=== PATIENT | male | born 1985 | race Caucasian/White ===

== ENCOUNTER 2017-11-24 14:28 | Outpatient (CLI) | payer OTHER | END 2017-11-24 14:29 | disposition home or self-care (01) | LOC: CTENTCT 14:28 | PROVIDERS: ATTEND Otolaryngology Plastic Surgery within the Head & Neck | DX: J34.2 Deviated nasal septum (principal) | CPT/HCPCS: 70486 ==

== ENCOUNTER 2017-12-24 06:58 | Day surgery (SDC) | payer OTHER ==
[2017-12-23 14:21] VITALS: BMI 31.1
[2017-12-24] MEDS ORDERED: Oxymetazoline HCl 0.05% ( 15 ML ) ONE ×2 (09:57→11:00)
[2017-12-24] MEDS ORDERED: Scopolamine 1.5 mg/72 hour Patch ONE (10:17)
[2017-12-24] MEDS ORDERED: Midazolam HCl 2 mg/2 ml Vial ONE ×2 (10:17→10:57)
[2017-12-24] MEDS ORDERED: Morphine 4 MG/ML VIAL ONE (10:57)
[2017-12-24] MEDS ORDERED: Fentanyl 250 MCG/5 ML VIAL ONE (10:57)
[2017-12-24] MEDS ORDERED: Lidocaine 1% w/Epinephrine 1:200K 30 ML VIAL ONE (11:00)
[2017-12-24] MEDS ORDERED: Bacitracin Zinc Ointment 30 gm TUBE ONE (11:00)
[2017-12-24] MEDS ORDERED: methylPREDNISolone Acetate 40 mg/ml Vial ONE (11:07)
[2017-12-24] MEDS ORDERED: Ferric Subsulfate 8 ML BOT ONE (12:05)
[2017-12-24] MEDS ORDERED: Morphine 2 MG/ML SYRINGE ONE (12:53)
[2017-12-24] MEDS ORDERED: Hydrocodone-Acetamin 15 ML UDCUP ONE (13:47)
--- NOTE | 2017-12-24 14:13 | OP ---
PREOPERATIVE DIAGNOSES: 1. Chronic rhinosinusitis. 2. Nasal septal deviation. 3. Bilateral inferior turbinate hypertrophy. 4. Chronic adenotonsillitis. 5. Adenotonsillar hypertrophy. 6. Nasal obstruction. POSTOPERATIVE DIAGNOSES: 1. Chronic rhinosinusitis. 2. Nasal septal deviation. 3. Bilateral inferior turbinate hypertrophy. 4. Chronic adenotonsillitis. 5. Adenotonsillar hypertrophy. 6. Nasal obstruction. PROCEDURES: 1. Bilateral endoscopic sinus surgery, maxillary antrostomies. 2. Bilateral endoscopic sinus surgery, frontal sinusotomies. 3. Bilateral endoscopic sinus surgery, sphenoidotomies. 4. Nasal septoplasty. 5. Bilateral inferior turbinate submucosal resection. 6. Tonsillectomy and adenoidectomy. SURGEON: Chin Xiao M.D. ESTIMATED BLOOD LOSS: 20 mL COMPLICATIONS: None. ANESTHESIA: GETA. PROCEDURE: Tonsillectomy and adenoidectomy. PROCEDURE IN DETAIL: After consent was obtained, the patient was identified, brought to the operatin g room, and placed on the operating table in the supine position. General endotracheal anesthesia and intravenous access was obtained and we proceeded with positioning the patient for oropharyngeal surg elver. Oropharyngeal exposure was obtained with a Marika-Cleveland mouth gag after a head drape was placed a nd secured with a towel clip. The Marika-Cleveland mouth gag was then suspended from the Amin tray and pal atal elevation was achieved with a red rubber catheter. The right tonsil was addressed first. We use d a curved Allis to grasp the tonsil and retract it medially as an anterior pillar incision was made. The retrotonsillar fascial plane was then established and blunt dissection was performed with the myers ction cautery. Blood vessels were anticipated, identified, and cauterized as they were encountered. U ltimately, dissection was carried to the posterior tonsillar pillar mucosa which was incised hemostat ically, as well as the base of tongue connection. The tonsil was then passed off as a specimen and bl eeding points within the tonsillar bed were cauterized under direct visualization. We subsequently tu rned our attention to the contralateral side, where using a similar technique, a near identical proce dure was performed. Again, the tonsil was grasped and retracted medially with a curved Allis. The ret rotonsillar fascial plane was established and while the anterior pillar was retracted medially, the h emostatic blunt dissection of the tonsil with a suction cautery was performed with blood vessels anti cipated, identified, and cauterized as they were encountered. Again, dissection continued to the base of tongue and posterior tonsillar pillar mucosa which was incised in a hemostatic fashion. The tonsi llar beds were then carefully inspected and bleeding points were identified and cauterized with a suc tion cautery. After this portion of the procedure, hemostasis was completely obtained. Under direct m irror visualization, we visualized the adenoid pad. Under direct mirror visualization, we removed the bulk of the adenoid tissue with the adenoid curette. We then packed the nasopharynx for an appropria te period of time with Te-Synephrine saturated tonsillar sponges. After a period of observation, we removed the pack. Under indirect mirror visualization, we obtained hemostasis and vaporization of res idual adenoid tissue with electrocautery. The patient's oral cavity was copiously irrigated with iced saline and subsequently suctioned. After completion of the procedure, the nasal cavity and oropharyn x were irrigated and suctioned as were the gastric contents. The patient was then awakened and transf erred to the recovery room where the patient remained in stable condition prior to discharge to [facility]. PROCEDURE: Nasal septoplasty and bilateral inferior turbinates. PROCEDURE IN DETAIL: Patient was taken to the operating room and placed supine on the table. General endotracheal anesthesia was obtained by the Anesthesia staff. Tube was secured in the left lower lip . Patient was then placed in the beach chair position, and Afrin pledgets were placed in the nasal ca vity. Injections of 1% lidocaine with 1:100,000 epinephrine were made into the nasal septum as well as the inferior turbinates. Patient was then prepped and draped in standard surgical fashion for nasa l surgery. Following this, the Afrin pledgets were removed. A Segun incision was made on the left n samantha septum. Submucoperichondrial dissection was performed. The deviated portions of the septum incl uded portions of the cartilage and the bony septum. These isolated areas were removed using three cut ting rongeurs. There was noted to be a large dorsal and caudal strut, left intact for support of the nose. The mucoperichondrial flaps were then reapproximated using a 4-0 gut stitch. Any straight piece s of cartilage were crushed prior to this and placed between the mucoperichondrial flaps. Following t his, the inferior turbinates were then punctured with a submucosal coblation wand, and submucosal cob lations were performed of multiple areas of the inferior portion of the anterior inferior turbinate. Please note that the inferior turbinates were submucosally resected using the submucosal microdebride r and the anterior inferior portions of the inferior turbinates bilaterally. Following this, inferio r turbinates were then laterally outfractured with a [place] elevator. Following this, the 0 degree en doscope was advanced into the middle meatus. The middle turbinate was gently medialized using a Free r elevator. Following this, the uncinate process was anteriorly fractured using the ball-ended probe and then removed using the straight microdebrider and the upbiting Blakesley forceps. Following thi s, the natural maxillary sinus ostia was identified and was widened using the 0 and curved microdebri ders bilaterally. Following this, the ethmoidal bulla was identified and was punctured on its medial and inferior aspect and was removed using the microdebrider bilaterally. Following this, the grand lamella was identified and was punctured into the posterior ethmoidal cells, working from posterior t o anterior, the ethmoidal cells were opened in a mucosal-sparing technique. There were multiple poly ps noted in the right posterior ethmoid and left posterior ethmoid area. Following this, an approach to the sphenoid sinus was made through the ethmoidectomies noting the attachment of the superior tur binate to the posterior nasal wall, staying just medial and inferior to this sphenoidotomies were cre ated, using the straight microdebrider. The sphenoidotomies were widened medially and inferiorly jayde aterally. Following this, the 40 degree microdebrider and the 45 degree endoscope was used to visual ize the frontal recess cells, which were further opened using the curved microdebrider. The frontal sinus ostia was then visualized and was widened anteriorly and laterally using the curved microdebrid er blade bilaterally. Following this, the nasal cavity was irrigated, Mirapex placed within the mid dle meatus. Gann splints were placed and secured. The patient tolerated the procedure well.
== END 2017-12-24 14:25 | disposition home or self-care (01) ==
LOC: SDC 06:58
PROVIDERS: ATTEND Otolaryngology Plastic Surgery within the Head & Neck
PROC: 099Q8ZZ Drainage of Right Maxillary Sinus, Via Natural or Artificial Opening Endoscopic (ICD-10-PCS; principal; 2017-12-24)
PROC: 0CTQXZZ Resection of Adenoids, External Approach (ICD-10-PCS; principal; 2017-12-24)
PROC: 09CX8ZZ Extirpation of Matter from Left Sphenoid Sinus, Via Natural or Artificial Opening Endoscopic (ICD-10-PCS; principal; 2017-12-24)
PROC: 09CW8ZZ Extirpation of Matter from Right Sphenoid Sinus, Via Natural or Artificial Opening Endoscopic (ICD-10-PCS; principal; 2017-12-24)
PROC: 099R8ZZ Drainage of Left Maxillary Sinus, Via Natural or Artificial Opening Endoscopic (ICD-10-PCS; principal; 2017-12-24)
PROC: 0CTPXZZ Resection of Tonsils, External Approach (ICD-10-PCS; principal; 2017-12-24)
PROC: 09BT8ZZ Excision of Left Frontal Sinus, Via Natural or Artificial Opening Endoscopic (ICD-10-PCS; principal; 2017-12-24)
PROC: 09RM07Z Replacement of Nasal Septum with Autologous Tissue Substitute, Open Approach (ICD-10-PCS; principal; 2017-12-24)
PROC: 09BS8ZZ Excision of Right Frontal Sinus, Via Natural or Artificial Opening Endoscopic (ICD-10-PCS; principal; 2017-12-24)
DX: J32.9 Chronic sinusitis, unspecified (principal); J35.03 Chronic tonsillitis and adenoiditis; J03.90 Acute tonsillitis, unspecified; J34.2 Deviated nasal septum; J34.3 Hypertrophy of nasal turbinates; Z91.013 Allergy to seafood; Z79.51 Long term (current) use of inhaled steroids; Z79.899 Other long term (current) drug therapy
CPT/HCPCS: 88304; 96374; J0131; J1030; J2250; J2270; J3010

== ENCOUNTER 2018-02-22 19:30 | Emergency (ER) | payer OTHER ==
--- NOTE | 2018-02-22 20:21 | RAD ---
RIGHT KNEE FOUR VIEWS: HISTORY: A 32-year-old male with a history of right knee pain following trauma. History of prior ACL repair. FINDINGS: There is evidence for a prior ACL repair. No evidence for acute fracture or dislocation. There is s ome increased density in the suprapatellar recess, concerning for possible joint effusion. IMPRESSION: 1. No fracture or dislocation. 2. Prior anterior cruciate ligament repair. 3. Increased density in the suprapatellar recess, suggesting the possibility of joint effusion. Consider follow-up nonemergent MRI, particularly if there is concern for internal derangement. POS: NAVID
== END 2018-02-22 20:35 | disposition home or self-care (01) ==
LOC: SCSER 19:30
DX: S83.91XA Sprain of unspecified site of right knee, initial encounter (principal); K21.9 Gastro-esophageal reflux disease without esophagitis; F17.210 Nicotine dependence, cigarettes, uncomplicated; I10 Essential (primary) hypertension; V89.2XXA Person injured in unspecified motor-vehicle accident, traffic, initial encounter

== ENCOUNTER 2018-02-25 15:14 | Outpatient (CLI) | payer OTHER ==
--- NOTE | 2018-02-25 17:30 | MRI ---
MRI RIGHT KNEE WITHOUT CONTRAST 02/25/18 HISTORY: M25.561 - right knee pain. COMPARISON: Radiograph 02/22/18. FINDINGS: MEDIAL MENISCUS: Posterior medial meniscocapsular separation. LATERAL MENISCUS: No normal posterior root attachment of the lateral meniscus is appreciated. There is extrusion of the lateral meniscal body into the lateral gutter. There is an abnormal inherent degenerative signal thr oughout the body and posterior horn of the lateral meniscus. There appears to be a full thickness rad ial tear of the posterior root attachment with 5 mm from the footplate. Posterior cruciate ligament is intact. There appears to be a rupture of the ACL graft proximal fibers . The fibers are markedly wavy. EXTENSOR MECHANISM: The quadriceps tendon, patella and patellar tendon are intact. There is ACL graft harvest sites from the patellar tendon. There is grade II injury of the deep fibers of the medial collateral ligament. There is abnormal mona a around the lateral collateral ligament although for the most part is intact. Mild edema surrounding the popliteus. CARTILAGE: Patellofemoral compartment: Intact. Medial compartment: There is a full thickness chondral defect. Mild chondral fraying of the central a rticular surface and medial femoral condyle. Lateral compartment: There is a full thickness cartilage defect measuring 7 mm in transverse x approx imately 15 mm in AP dimension. SOFT TISSUES: There is a tear of the arcuate ligament. The popliteofibular ligament is also partially torn. There i s extensive superficial soft tissue edema. Large joint effusion. BONES: There is contusion of the lateral femoral condyle and lateral tibial plateaus with a pivot shift brooke angela. MUSCLES: There is a partial tear, grade II, of the proximal soleus origin from the fibular neck. IMPRESSION: 1. High grade injury of the ACL graft likely completely torn from the proximal fibers. The inter condylar fibers are wavy. 2. Pivot shift contusions of the posterolateral tibial plateau and lateral femoral condyle with a full thickness cartilage defect of the lateral femoral condyle and lateral femoral condyle measurin g 8 mm in transverse x 15 mm in craniocaudad dimension. 3. Grade I injury lateral collateral ligament and grade II arcuate ligament injury and a postero lateral corner injury. 4. Grade II medial meniscofemoral injury. 5. Full thickness radial tear of the posterior root attachment lateral meniscus at the footplate with a 4 mm gap. There is a degenerative signal and complex tear of the body and posterior horn of t he lateral meniscus with 2 mm lateral extrusion. 6. Vertical longitudinal tear posterior root attachment medial meniscus with medial meniscocapsu lar separation. 7. Grade II partial tear of the soleus myotendinous junction at the posterior fibular neck. 8. Extensive debris in the recess. 9. Large popliteal cyst. POS: OFF
== END 2018-02-25 15:15 | disposition home or self-care (01) ==
LOC: MRI 15:14
PROVIDERS: ATTEND Orthopaedic Surgery
DX: M25.562 Pain in left knee (principal); S83.512A Sprain of anterior cruciate ligament of left knee, initial encounter; S83.282A Other tear of lateral meniscus, current injury, left knee, initial encounter; M71.22 Synovial cyst of popliteal space [Baker], left knee

== ENCOUNTER 2018-03-11 06:12 | Observation (INO) | payer OTHER ==
[2018-03-10 15:39] VITALS: BMI 30.2
[2018-03-11] MEDS ORDERED: Fentanyl 100 MCG/2 ML VIAL ONE ×3 (06:27→10:50)
[2018-03-11] MEDS ORDERED: Midazolam HCl 2 mg/2 ml Vial ONE (06:27)
[2018-03-11] MEDS ORDERED: Ropivacaine 0.2% HCl/PF 20 ML ONE (06:27)
[2018-03-11] MEDS ORDERED: Lidocaine 1% PF 5 ML VIAL ONE ×3 (06:28→12:34)
[2018-03-11] MEDS ORDERED: Ropivacaine 0.5% HCl/PF (150 MG/30 ML VIAL) ONE (06:28)
[2018-03-11] MEDS ORDERED: CEFAZOLIN/Water 2 GM/20 ML SYRINGE ONE (06:47)
[2018-03-11] MEDS ORDERED: Scopolamine 1.5 mg/72 hour Patch ONE (07:10)
[2018-03-11] MEDS ORDERED: Ropivacaine HCl/PF 1,100 MG in Sodium Chloride 0.9% 440 ML NERVE BLCK SCH (07:37)
[2018-03-11] MEDS ORDERED: traMADol HCl 50 MG TAB PO PRN ×2 (07:37)
[2018-03-11] MEDS ORDERED: Promethazine HCl 25 MG/ML VIAL IM PRN ×2 (07:37→09:43)
[2018-03-11] MEDS ORDERED: Zolpidem Tartrate 5 MG TAB PO PRN (07:37)
[2018-03-11] MEDS ORDERED: HYDROcodone/Acetaminophen 10/325 mg Tablet PO PRN ×2 (07:37)
[2018-03-11] MEDS ORDERED: Ondansetron HCl/PF 4 MG/2 ML Vial IVP PRN ×2 (07:37→09:43)
[2018-03-11] MEDS ORDERED: Fentanyl 100 MCG/2 ML VIAL IV PRN (07:38)
[2018-03-11] MEDS ORDERED: Vancomycin HCl 1.5 GM in Sodium Chloride 0.9% 250 ML 300 ML IVPB SCH (07:45)
[2018-03-11] MEDS ORDERED: Promethazine HCl 25 MG/ML VIAL SLOW IVP PRN (09:43)
[2018-03-11] MEDS ORDERED: diphenhydrAMINE 50 MG CAP PO PRN (10:53)
[2018-03-11] MEDS ORDERED: Morphine 4 MG/ML VIAL SLOW IVP PRN ×2 (10:53)
[2018-03-11] MEDS ORDERED: HYDROcodone/Acetaminophen 7.5/325 mg Tablet PO PRN ×2 (10:53)
[2018-03-11] MEDS ORDERED: Methocarbamol 500 MG TAB PO PRN (10:53)
[2018-03-11] MEDS ORDERED: Bisacodyl 10 MG SUPP PR PRN (10:53)
[2018-03-11] MEDS ORDERED: Acetaminophen 500 MG TAB PO PRN (10:53)
[2018-03-11] MEDS ORDERED: Milk Of Magnesia 30 ML UDCUP PO PRN (10:53)
[2018-03-11] MEDS ORDERED: PROPOFOL 200 MG/20 ML VIAL ONE (12:34)
[2018-03-11] MEDS ORDERED: Dexamethasone 20 MG/5 ML VIAL ONE (12:34)
[2018-03-11] MEDS ORDERED: Metoclopramide HCl 10 MG/2 ML VIAL ONE (12:34)
[2018-03-11] MEDS ORDERED: Ondansetron HCl/PF 4 MG/2 ML Vial ONE (12:34)
[2018-03-11] MEDS ORDERED: Ketorolac Tromethamine 30 MG/ML VIAL ONE (12:34)
--- NOTE | 2018-03-11 13:22 | OP ---
DATE OF PROCEDURE: 03/11/2018 PREOPERATIVE DIAGNOSES: 1. Right knee anterior cruciate ligament tear - of a revision anterior cruciate ligament reconstruction. 2. Medial meniscus tear. 3. Lateral meniscus tear. 4. Grade 4 lesion lateral femoral condyle. POSTOPERATIVE DIAGNOSES: 1. Right knee anterior cruciate ligament tear. 2. Posterior horn medial meniscus tear. 3. Lateral tear of the body of the lateral meniscus that involved the area just anterior to the popliteus tendon as well as going more posterior into the posterior horn. 4. Grade 4 lesion of the lateral femoral condyle, which was 1.5 cm in length and about 7 mm width. PROCEDURES PERFORMED: 1. Right knee exam under anesthesia. 2. Right knee arthroscopy with medial meniscus repair. 3. Partial lateral meniscectomy. 4. Anterior cruciate ligament reconstruction using allograft Achilles tendon. 5. Open repair of grade 4 lesion lateral femoral condyle including drilling and placement of [employer] BioCartilage to enhance the repair site. 6. Hardware removal right leg SURGEON: Maikol Gates M.D. RENTAL MANAGEMENT TRAINEE: Jr Oliver PA-C. BLOOD LOSS: Minimal. COMPLICATIONS: None. DISPOSITION: He did go to the recovery room in stable condition. IMPLANTS: We did use 1 SpeedCinch device from [employer]. We used a 7 x 25 metal interference screw from [employer]. We used a 9 mm Delta screw from [employer]. We used a bicortical screw with a soft tissue washer to backed this up again also from [employer]. He did have a general anesthetic. He also had a preoperative block. INDICATIONS: Shadi is a 32-year-old male who has had previous right knee surgeries and recently was involved in an accident in which he reinjured his right knee. PROCEDURE IN DETAIL: After all appropriate consent forms were explained and signed, Shadi was taken back to the operating room and at this time was given general anesthetic. Once anesthesia was appropriate, the tourniquet was placed on the right thigh and the right knee was examined. Varus and valgus stress was performed and the knee was stable in full extension and 30 degrees of flexion and knee did open up medially. I have positive Usman exam, negative posterior drawer. At this time, the knee was placed in an arthroscopic leg mcgovern. It was then prepped and draped in the standard surgical fashion. An inferolateral portal was established and the scope was placed into the knee joint. Copious amount of blood was evacuated from the knee. A medial working portal was then made again using a needle localization technique. At this time, we had to wash the remnant of blood out of the knees, so we could visualize appropriately. We then were in the notch. The PCL was intact. The ACL remnant was in the notch and a portion of it was hard as a rock , in fact it was a large piece of bone and appear that this would probably torn while back and it hardened on its own, but the remnant was sitting in the notch. All this tissue was removed. We were then able to visualize as previously placed screw and it was at around 12 to 12:15 position that was anterior and thus it did not feel that the screw needed to be removed as it would not interfere with a new reconstruction. At this time, the medial compartment was evaluated. The femur overall was in good condition as well as the tibia. The medial meniscus fortunately does have a small area in the posterior horn, which was found to be torn off the capsule and to solidify this and help this heal. This area was roughened up with the shaver and once SppedCinch device was placed in horizontal mattress fashion to help augment this repair. Once this was done, the posterior horn was felt to be stable. Laterally, we then evaluated blood compartment. There were some large chondral pieces floating which were removed with the shaver. Lateral meniscus appeared to have had a previous injury to the posterior horn. The MR showed a root tear ; however, this patient did not actually have a normal root insertion as he had a ligament of Marsh noted that went directly from the lateral meniscus onto the PCL and was found to be very stable. There is no sign of injury in this root region and thus this was left alone. As the rest of the lateral meniscus was evaluated, there was a tear which was almost like an oblique skiving tear with the deepest portion immediately in front of the popliteal tendon and popliteal hiatus as this went posteriorly, it came out more towards the white zone. I initially thought about trying to fixate this, but the reality is the area want to fix it with the popliteus in a way really would not be amenable to any type of good solid fixation and therefore partial meniscectomy was performed. This removed at maximum 20% of the meniscus, but realistically probably less than this. Remaining meniscus was in good condition. The tibial plateau was in good condition. The femur, however, had a grade 4 lesion and once unstable chondral flaps were taken down and good schroeder were obtained, this lesion was approximately 1.5 cm from anterior to posterior and about 7 mm in width. This would later be dealt with at the end of the procedure. At this time, the patellofemoral joint was evaluated and was found to be in good condition. No loose bodies were noted in the gutters. We then went ahead and prepared our graft from Achilles on the back table and this would be a 10 mm in size. The bone plug is 25 mm in length. We hyperflexed the knee and through the medial portal, placed [id number] guide and placed the pin up and out the anterolateral thigh. We then reamed to a depth of 35. We then removed the reamer and removed all loose bony and cartilaginous tissue. We then used a 10 mm dilator to dilate our femoral tunnel and impacted tunnel schroeder. At this time , we turned our attention to the tibia. The medial incision was made along the tibia to accommodate our guide. Our guide was placed right in the previous tibial tunnel, was felt that this was in good position and through our tibial incision, we found our old screw. This was removed without complication. We went ahead and placed our pin up this hole and up into the joint. A 10 mm reamer was then used to ream our tunnel, some remnant soft tissue was removed out of this tunnel. We then cleaned the tunnel with a rasp, as well as a shaver to remove any soft tissue remnant. We then dilated the tunnel, starting with a 9, 9.5, and then 10 to compact our bone. We then went ahead and went dry on the knee. We then flexed her knee up one more time, placed our pin up and out the anterolateral thigh using this to pull a passing suture into the knee joint. This was then pulled on our tibial tunnel. We used this to pull our graft up into its position. Once this was done, a 7 x 25 metal interference screw was used to fixate our femoral bone plug. We then removed the scope and drained the knee, put the knee through multiple ranges of motion and fixated the knee and essentially full extension, but not hyperextension by first pulling distally on our tendon graft and placing a 9 mm Delta BioComposite screw. This was then evaluated with the arthroscope to make sure that the screw was not into the joint itself. At this time, we then backed this up with a soft tissue washer and a bicortical screw by drilling, tapping and placing the screw right across the tendon and pulling the tendon down to the tibia. This gave us excellent fixation and under direct visualization, the knee went through a degree or two of hyperextension through full flexion with the graft not impinging. At this time, we then removed our excess Achilles graft. We then removed the scope and drained the knee. We then elongated our lateral portal to make a small lateral parapatellar entrance to the lateral femoral condyle and through this and with direct visualization, retractors was placed. We were able to drill with a K-wire, multiple drill holes followed by placing our BioCartilage. This had been mixed on the back table with some ACP and the BioCartilage was placed into the defect and impacted. It was made so it was not proud. We then put the fibrin glue on top of this and stayed in the same position for 5 minutes while this dried. We then removed the retractors, took the knee through gentle range of motion, making sure that the stayed in place and indeed it did. We then used multiple Vicryls to close our capsular incision, 2-0 Vicryl and surgical latonia for skin. Remaining portal sites as well as our tibial incision site was also closed in the same fashion. Once this was done, tourniquet was let down, and the toes pinked up nicely. A bulky sterile dressing was applied and the patient was placed in a knee immobilizer. The patient again was taken to the recovery room in stable condition. All counts were correct at the end of the case and he did receive preoperative IV antibiotics. ELI
[2018-03-11] MEDS: Dextrose 5 %-0.45 % NaCl 1,000 ML IV SCH ×2 (15:06→21:11)
[2018-03-11] MEDS: Ketorolac Tromethamine 30 MG/ML VIAL IVP SCH ×2 (15:08→18:12)
[2018-03-11] MEDS: CEFAZOLIN/Water 2 GM/20 ML SYRINGE SLOW IVP SCH (16:10)
[2018-03-11] MEDS: Famotidine 20 MG TAB PO SCH (21:11)
[2018-03-12] MEDS: Ketorolac Tromethamine 30 MG/ML VIAL IVP SCH ×2 (00:08→06:49)
[2018-03-12] MEDS: CEFAZOLIN/Water 2 GM/20 ML SYRINGE SLOW IVP SCH (00:09)
[2018-03-12 04:51] VITALS: TEMP 97.6
[2018-03-12] MEDS: Dextrose 5 %-0.45 % NaCl 1,000 ML IV SCH (07:34)
[2018-03-12 08:37] VITALS: BP 146/88
[2018-03-12] MEDS: Famotidine 20 MG TAB PO SCH (08:39)
[2018-03-12] MEDS ORDERED: Fluticasone Propionate Nasal Spray 16 gm Bottle NASAL SCH (09:00)
[2018-03-12] MEDS ORDERED: Aspirin 325 mg Enteric Coated Tablet PO SCH (10:15)
== END 2018-03-12 11:15 | disposition home or self-care (01) ==
LOC: SDC 06:12 → SURG B 14:22
PROVIDERS: ADMIT Orthopaedic Surgery; ATTEND Orthopaedic Surgery
PROC: 0SRT0JZ Replacement of Right Knee Joint, Femoral Surface with Synthetic Substitute, Open Approach (ICD-10-PCS; principal; 2018-03-11)
PROC: 0SBC4ZZ Excision of Right Knee Joint, Percutaneous Endoscopic Approach (ICD-10-PCS; 2018-03-11)
PROC: 0MQN4ZZ Repair Right Knee Bursa and Ligament, Percutaneous Endoscopic Approach (ICD-10-PCS; 2018-03-11)
PROC: 0SQC4ZZ Repair Right Knee Joint, Percutaneous Endoscopic Approach (ICD-10-PCS; 2018-03-11)
DX: T84.89XA Other specified complication of internal orthopedic prosthetic devices, implants and grafts, initial encounter (principal); S83.241A Other tear of medial meniscus, current injury, right knee, initial encounter; S83.281A Other tear of lateral meniscus, current injury, right knee, initial encounter; M24.10 Other articular cartilage disorders, unspecified site; K21.9 Gastro-esophageal reflux disease without esophagitis; V29.9XXA Motorcycle rider (driver) (passenger) injured in unspecified traffic accident, initial encounter; Y93.55 Activity, bike riding; Z91.013 Allergy to seafood; Z79.899 Other long term (current) drug therapy
CPT/HCPCS: 96374; 96375; 96376; C1713; G0378; G8978-GP-CI; G8979-GP-CI; G8980-GP-CI; J1100; J1885; J2001; J2250; J2405; J2704; J2765; J2795; J3010; J3370; J7050

== ENCOUNTER 2020-01-02 10:56 | Emergency (ER) | payer OTHER ==
[2020-01-02] MEDS ORDERED: Lidocaine 1% w/Epinephrine 1:100K 20 ML VIAL ONE (11:05)
[2020-01-02] MEDS ORDERED: Adacel (T-DAP) 0.5 ML SYRINGE ONE (11:05)
--- NOTE | 2020-01-02 11:31 | RAD ---
Right knee 4 views HISTORY: Left knee injury. COMPARISON: 02/22/2018. FINDINGS: Joint spaces are preserved. Multiple metallic anchors consistent with prior ACL reconstruct ion. No acute fracture, dislocation, radiopaque foreign bodies, or fluid distention of the suprapatellar bursa evident. IMPRESSION: Postoperative findings are stable. No acute osseous abnormalities are demonstrated.
[2020-01-02] MEDS ORDERED: Bacitracin 1 PK ONE (12:19)
== END 2020-01-02 12:35 | disposition home or self-care (01) ==
LOC: ERS 10:56
DX: S81.011A Laceration without foreign body, right knee, initial encounter (principal); Z23 Encounter for immunization; I10 Essential (primary) hypertension; K21.9 Gastro-esophageal reflux disease without esophagitis; Z87.891 Personal history of nicotine dependence; W22.8XXA Striking against or struck by other objects, initial encounter
CPT/HCPCS: 12002; 90471; 90715

== ENCOUNTER 2022-06-14 13:32 | Outpatient (CLI) | payer BC | END 2022-06-14 13:33 | disposition home or self-care (01) | LOC: ULT 13:32 | PROVIDERS: ATTEND Family Medicine | DX: R00.2 Palpitations (principal); I07.1 Rheumatic tricuspid insufficiency; I37.1 Nonrheumatic pulmonary valve insufficiency | CPT/HCPCS: 93306 ==